=== PATIENT | male | born 1995 | race Caucasian/White ===

== ENCOUNTER 2016-10-11 17:14 | Emergency (ER) | payer OTHER ==
[~2016-10-11] VITALS: Ht 157.5 cm; Wt 63.6 kg
[~2016-10-11 17:14] MED LIST: ALBU17AE2 IH; DOXY100C PO
[2016-10-11 17:37] LABS: BASOPHILS # (AUTO) 0.04 K/uL (0.00-0.20); BASOPHILS % (AUTO) 0.3 % (0.0-2.0); EOSINOPHILS # (AUTO) 0.12 K/uL (0.00-0.70); EOSINOPHILS % (AUTO) 0.84 % (1.0-6.0); HEMATOCRIT 49.2 % (41-53); HEMOGLOBIN 16.1 g/dL (13.5-17.5); LYMPHOCYTES # (AUTO) 2.9 K/uL (1.0-4.8); LYMPHOCYTES % (AUTO) 21.1 % (22.0-44.0); MEAN CORPUSCULAR HEMOGLOBIN 27.6 pg (26.0-34.0); MEAN CORPUSCULAR HGB CONC 32.8 G/dL (31.0-37.0); MEAN CORPUSCULAR VOLUME 84 fL (80-100); NEUTROPHILS # (AUTO) 9.7 K/uL (1.8-7.7); NEUTROPHILS % (AUTO) 70.8 % (40.0-70.0); PLATELET COUNT (AUTO) 290 K/uL (150-450); RED BLOOD CELL COUNT(AUTO) 5.84 MIL/uL (4.50-5.90); WHITE BLOOD COUNT (AUTO) 13.8 K/uL (4.5-11.0)
[2016-10-11 17:47] LABS: ANION GAP 7 mmol/L (8-16); CALCIUM, TOTAL 8.9 mg/dL (8.8-10.5); CARBON DIOXIDE 30 mmol/L (22-29); CHLORIDE 102 mmol/L (98-107); GLOMERULAR FILTR. RATE CALC > 60 mL/min (>60); POTASSIUM 3.4 mmol/L (3.5-5.1); SODIUM SERUM 139 mmol/L (136-145); UREA NITROGEN, BLOOD 12 mg/dL (7-18)
[2016-10-11 17:53] LABS: ALANINE AMINOTRANSFERASE 49 U/L (12-78); ALBUMIN 4.4 g/dL (3.4-5.0); ASPARTATE AMINOTRANSFERASE 24 U/L (15-37); BILIRUBIN,TOTAL 0.6 mg/dL (0.1-1.0); TOTAL PROTEIN, SERUM 7.8 g/dL (6.4-8.2)
[2016-10-11] MEDS ORDERED: HYDROCODONE/ACETAMINOPHEN 5-325 MG TABLET PO ONE (18:00)
[2016-10-11 18:04] LABS: APPEARANCE,URINE CLEAR (CLEAR); GLUCOSE, URINE (UA) NEGATIVE (NEGATIVE); KETONES,URINE NEGATIVE (NEGATIVE); LEUKOCYTE ESTERASE ,URINE NEGATIVE (NEGATIVE); OCCULT BLOOD,URINE NEGATIVE (NEGATIVE); PH,URINE 5.5 (5.0-8.0); PROTEIN,URINE NEGATIVE (NEGATIVE)
[2016-10-11 18:06] LABS: ADD UA MICROSCOPIC NO
[2016-10-11] MEDS ORDERED: LIDOCAINE HCL/PF 1% 2 ML VIAL IM ONE (19:30)
[2016-10-11] MEDS ORDERED: CefTRIAXone SODIUM 1 GM/VIAL IM ONE (19:30)
[2016-10-11] MEDS ORDERED: AZITHROMYCIN 250 MG TABLET PO ONE (19:30)
[2016-10-11 19:55] VITALS: BP 125/81
== END 2016-10-11 20:15 | disposition home or self-care (01) ==
LOC: EMS 17:16
DX: N34.2 Other urethritis (principal); Z88.8 Allergy status to other drugs, medicaments and biological substances
CPT/HCPCS: 36415; 74176; 80053; 81003; 85025; 87491; 87591; 96372; 99285; J0696; J3490

== ENCOUNTER 2017-01-07 20:22 | Emergency (ER) | payer OTHER ==
[~2017-01-07] VITALS: Ht 157.5 cm; Wt 59.1 kg
[2017-01-07] MEDS ORDERED: CEPHALEXIN MONOHYDRATE 500 MG CAPSULE PO ONE (22:30)
[2017-01-07] MEDS ORDERED: BUPIVACAINE HCL/PF 0.25% 10 ML VIAL INJ ONE (22:30)
[2017-01-07] MEDS ORDERED: IBUPROFEN 600 MG TABLET PO ONE (22:30)
[2017-01-07] MEDS ORDERED: HYDROCODONE/ACETAMINOPHEN 5-325 MG TABLET PO ONE (22:30)
[2017-01-07 23:40] VITALS: BP 129/70
== END 2017-01-07 23:42 | disposition home or self-care (01) ==
LOC: EMS 20:31
DX: L03.032 Cellulitis of left toe (principal); Z88.8 Allergy status to other drugs, medicaments and biological substances
CPT/HCPCS: 10060; 99284; J3490

== ENCOUNTER 2017-05-03 10:05 | Emergency (ER) | payer OTHER ==
[~2017-05-03] VITALS: Ht 157.5 cm; Wt 59.0 kg
[2017-05-03] MEDS ORDERED: HYDROCODONE/ACETAMINOPHEN 5-325 MG TABLET PO ONE (11:00)
[2017-05-03] MEDS ORDERED: CefTRIAXone SODIUM 1 GM/VIAL IM ONE (11:00)
[2017-05-03] MEDS ORDERED: LIDOCAINE HCL/PF 1% 2 ML VIAL IM ONE (11:00)
[2017-05-03 11:36] VITALS: BP 124/70
== END 2017-05-03 11:41 | disposition home or self-care (01) ==
LOC: EMS 10:06
DX: J34.0 Abscess, furuncle and carbuncle of nose (principal); L08.9 Local infection of the skin and subcutaneous tissue, unspecified; Z88.8 Allergy status to other drugs, medicaments and biological substances
CPT/HCPCS: 96372; 99283; J0696; J3490

== ENCOUNTER 2017-05-06 08:10 | Emergency (ER) | payer OTHER ==
[~2017-05-06] VITALS: Ht 157.5 cm; Wt 59.1 kg
[2017-05-06 10:22] VITALS: BP 140/90
== END 2017-05-06 10:36 | disposition home or self-care (01) ==
LOC: EMS 08:11
DX: J06.9 Acute upper respiratory infection, unspecified (principal); R03.0 Elevated blood-pressure reading, without diagnosis of hypertension; Z88.8 Allergy status to other drugs, medicaments and biological substances
CPT/HCPCS: 99282

== ENCOUNTER 2017-12-14 11:45 | Emergency (ER) | payer OTHER ==
[~2017-12-14] VITALS: Ht 157.5 cm; Wt 140.0 kg
[2017-12-14] MEDS ORDERED: CEPHALEXIN MONOHYDRATE 500 MG CAPSULE PO ONE (14:15)
[2017-12-14] MEDS ORDERED: SULFAMETHOX/TRIMETH DS 800-160 MG/TABLET PO ONE (14:15)
[2017-12-14] MEDS ORDERED: ACETAMINOPHEN 500 MG TABLET PO ONE (14:45)
[2017-12-14 15:07] VITALS: BP 110/61
== END 2017-12-14 15:32 | disposition home or self-care (01) ==
LOC: EMS 11:46
DX: L03.116 Cellulitis of left lower limb (principal); Z88.8 Allergy status to other drugs, medicaments and biological substances
CPT/HCPCS: 99284

== ENCOUNTER 2018-04-06 11:33 | Emergency (ER) | payer SELFPAY ==
[~2018-04-06] VITALS: Ht 157.5 cm; Wt 63.6 kg
[2018-04-06] MEDS ORDERED: CEPHALEXIN MONOHYDRATE 500 MG CAPSULE PO ONE (13:30)
[2018-04-06] MEDS ORDERED: LIDOCAINE/PF 1% 5 ML VIAL INJ ONE (13:30)
[2018-04-06] MEDS ORDERED: HYDROCODONE/ACETAMINOPHEN 5-325 MG TABLET PO ONE (13:30)
[2018-04-06] MEDS ORDERED: SULFAMETHOX/TRIMETH DS 800-160 MG/TABLET PO ONE (13:30)
[2018-04-06 14:42] VITALS: BP 132/85
== END 2018-04-06 14:45 | disposition home or self-care (01) ==
LOC: EMS 11:34
DX: L02.31 Cutaneous abscess of buttock (principal); Z88.8 Allergy status to other drugs, medicaments and biological substances
CPT/HCPCS: 10060; 99284; J3490

== ENCOUNTER 2018-04-08 08:04 | Emergency (ER) | payer SELFPAY ==
[~2018-04-08] VITALS: Ht 157.5 cm; Wt 63.6 kg
[2018-04-08] MEDS ORDERED: CEPH500 PO (08:39)
[2018-04-08 08:48] VITALS: BP 107/60
== END 2018-04-08 08:49 | disposition home or self-care (01) ==
LOC: EMS 08:05
DX: L02.31 Cutaneous abscess of buttock (principal); J45.909 Unspecified asthma, uncomplicated; Z48.00 Encounter for change or removal of nonsurgical wound dressing

== ENCOUNTER 2019-01-02 15:28 | Emergency (ER) | payer SELFPAY ==
[~2019-01-02] VITALS: Ht 157.5 cm; Wt 61.4 kg
[~2019-01-02 15:28] MED LIST changes: -ALBU17AE2 IH; +CEPH500 PO; -DOXY100C PO
[2019-01-02] MEDS ORDERED: CEPHALEXIN MONOHYDRATE 500 MG CAPSULE PO ONE (17:15)
[2019-01-02] MEDS ORDERED: IBUPROFEN 800 MG TABLET PO ONE (17:15)
[2019-01-02 19:40] VITALS: BP 138/77
== END 2019-01-02 19:41 | disposition home or self-care (01) ==
LOC: EMS 15:31
DX: L03.032 Cellulitis of left toe (principal); J45.909 Unspecified asthma, uncomplicated; Z88.8 Allergy status to other drugs, medicaments and biological substances

== ENCOUNTER 2023-12-19 16:12 | Emergency (ER) | payer MEDICAID ==
[~2023-12-19] VITALS: Ht 157.5 cm; Wt 65.9 kg
[2023-12-19 16:15] VITALS: TEMP 98.2
[2023-12-19] MEDS: IBUPROFEN 600 MG TABLET PO ONE (19:22)
[2023-12-19 19:30] VITALS: BP 125/77; PULSE 74; RESP 15
== END 2023-12-19 21:02 | disposition home or self-care (01) ==
LOC: EMS 16:12
DX: M20.011 Mallet finger of right finger(s) (principal); J45.909 Unspecified asthma, uncomplicated; F12.90 Cannabis use, unspecified, uncomplicated; Z88.8 Allergy status to other drugs, medicaments and biological substances
CPT/HCPCS: 99283